=== PATIENT | male | born 1985 | race Caucasian/White ===

== ENCOUNTER 2018-06-07 01:08 | Emergency (ER) | payer MEDICAID ==
[~2018-06-07] VITALS: Ht 172.7 cm; Wt 66.3 kg
--- NOTE | 2018-06-07 01:29 | NUR ---
PT. STATES "I WAS AT [facility] AND THEY WOULDN'T DO NOTHING FOR ME". THIS RN ASKED ABOUT DIAGNOSIS OF KIDNEY STONE AND PT. STATES "I DIAGNOSED MYSELF WITH IT BECAUSE I KNOW I PISSED IT OUT THIS MORNING. I CAN'T KEEP WALKING AROUND WITH ALL THIS PAIN." PT. REPORTS WALKING HERE FROM [facility] AFTER D/C FOR "A SECOND OPINION". PT. POOR HISTORIAN AND WHEN ASKED ABOUT FLANK PAIN STATES "I DON'T KNOW IF I HAVE PAIN THERE". DENIES VOMITING. PT. IN GOWN AND AWAITING PROVIDER EVAL.
[2018-06-07] MEDS ORDERED: KETOROLAC 30 MG/1 ML ONE (02:00)
[2018-06-07] MEDS ORDERED: KETOROLAC 30 MG/1 ML IM ONE (02:00)
--- NOTE | 2018-06-07 02:09 | NUR ---
PT. MEDICATED PER APR FOR 8 ABD PAIN. URINE SAMPLE COLLECTED AND SENT TO LAB. CONTINUOUS PUSLE OX AND B/P MONITORS PLACED. CALL LIGHT IN REACH. ALL SAFETY MEASURES OBSERVED.
[2018-06-07 02:31] LABS: AMPHETAMINE SCREEN, URINE Positive (Negative); BARBITURATE SCREEN, URINE Negative (Negative); BENZODIAZEPINE SCREEN, URINE Negative (Negative); CANNABINOID SCREEN, URINE Positive (Negative); COCAINE SCREEN, URINE Negative (Negative); METHADONE SCREEN, URINE Negative (Negative); OPIATE SCREEN, URINE Positive (Negative)
[2018-06-07 02:54] VITALS: BP 110/69
== END 2018-06-07 02:55 | disposition home or self-care (01) ==
LOC: ED 02:44
DX: R10.9 Unspecified abdominal pain (principal); F15.10 Other stimulant abuse, uncomplicated; F17.200 Nicotine dependence, unspecified, uncomplicated; J45.909 Unspecified asthma, uncomplicated
CPT/HCPCS: 71046; 80307; 96372; 99284; J1885

== ENCOUNTER 2018-07-08 20:18 | Emergency (ER) | payer MEDICAID ==
[~2018-07-08] VITALS: Ht 172.7 cm; Wt 65.5 kg
[2018-07-08] MEDS ORDERED: RISP0.253 PO (20:33)
[2018-07-08] MEDS ORDERED: LEVE250T28 PO (20:33)
[2018-07-08] MEDS ORDERED: DEXT10TA7 PO (20:33)
[2018-07-08] MEDS ORDERED: QUET25TA5 PO (20:33)
--- NOTE | 2018-07-08 20:33 | NUR ---
PT PRESENTED WITH C/O LEFT SIDE DENTAL PAIN AND VOMITING X 2 DAYS, PT STATED UPPER AND LOWER LEFT SIDED DENTAL PAIN, SWELLING NOTED TO LEFT FACE. RESPIRATIONS EVEN AND UNLABORED, MONITORS APPLIED, SIDERAILS UP X2, CALL LIGHT WITHIN REACH. AWAITING ERP FOR EVAL AND ORDERS
[2018-07-08] MEDS ORDERED: BUPIVACAINE 0.25% ONE (20:40)
[2018-07-08] MEDS ORDERED: LIDOCAINE-MPF 1%, 5ML ONE (20:40)
[2018-07-08] MEDS ORDERED: ONDANSETRON ODT 8 MG ONE (20:45)
--- NOTE | 2018-07-08 20:48 | NUR ---
PT MEDICATED PER MAR
[2018-07-08] MEDS ORDERED: ONDANSETRON ODT 8 MG PO ONE (21:00)
[2018-07-08] MEDS: LIDOCAINE-MPF 1%, 5ML INFIL ONE (21:00)
[2018-07-08] MEDS ORDERED: ONDANSETRON ODT 8 MG PO PRN (21:00)
[2018-07-08] MEDS ORDERED: BUPIVACAINE/PF-EPI 0.25% 1:200K SQ ONE (21:00)
[2018-07-08 21:15] VITALS: BP 120/75
== END 2018-07-08 21:36 | disposition home or self-care (01) ==
LOC: ED 21:28
DX: K02.9 Dental caries, unspecified (principal); K08.89 Other specified disorders of teeth and supporting structures; F15.10 Other stimulant abuse, uncomplicated; Z72.9 Problem related to lifestyle, unspecified; F17.210 Nicotine dependence, cigarettes, uncomplicated; J45.909 Unspecified asthma, uncomplicated; G40.909 Epilepsy, unspecified, not intractable, without status epilepticus
CPT/HCPCS: 64402; 99284; Q0162

== ENCOUNTER 2018-07-09 00:15 | Emergency (ER) | payer MEDICAID ==
[~2018-07-09] VITALS: Ht 172.7 cm; Wt 62.0 kg
[~2018-07-09 00:15] MED LIST: DEXT10TA7 PO; LEVE250T28 PO; QUET25TA5 PO; RISP0.253 PO
--- NOTE | 2018-07-09 00:22 | NUR ---
PT PLACED IN SECURED ROOM, BILAT GARAGE DOORS DOWN. ALL CLOTHING REMOVED, PT IN HOSPITAL GOWN. BELONGINGS TAGGEDM, BAGGED AND PLACED IN CLOTHING CLOSET. PT STATED HE IS ONLY SUICIDAL WHEN HE IS SOBER BECAUSE HIS LIFE SUCKS. LAB AT ROOM TO DRAW BLOOD. PT AWARE A URINE SAMPLE IS NEEDED. SITTER AT DOOR.
[2018-07-09 01:04] LABS: BASOPHILS # (AUTO) 0.05 x10^3/uL (0-0.1); BASOPHILS % (AUTO) 1 % (0-1); EOSINOPHILS # (AUTO) 0.23 x10^3/uL (0-0.4); EOSINOPHILS % (AUTO) 3 % (1-7); LYMPHOCYTES # (AUTO) 2.04 x10^3/uL (1-3.4); LYMPHOCYTES % (AUTO) 29 % (22-44); MD NO; MEAN CORPUSCULAR HEMOGLOBIN 29.9 pg (27.5-34.5); MEAN CORPUSCULAR HGB CONC 32.9 g/dL (33.2-36.2); MEAN CORPUSCULAR VOLUME 90.8 fL (81-97); MEAN PLATELET VOLUME 8.4 fL (7.4-10.4); MONOCYTES # (AUTO) 0.91 x10^3/uL (0.2-0.8); MONOCYTES % (AUTO) 13 % (2-9); NEUTROPHILS # (AUTO) 3.75 x10^3/uL (1.8-6.8); NEUTROPHILS % (AUTO) 54 % (42-75); PLATELET COUNT 255 x10^3/uL (130-400); RED BLOOD COUNT 4.61 x10^6/uL (4.38-5.82); RED CELL DISTRIBUTION WIDTH 14.4 % (9.4-14.8)
--- NOTE | 2018-07-09 01:08 | NUR ---
assumed care of pt at this time, pt in nad labs drawn by lab
[2018-07-09 01:46] LABS: ANION GAP 5 mmol/L (5-15); CALCIUM 8.3 mg/dL (8.5-10.1); CHLORIDE 107 mmol/L (98-107); CREATININE 0.76 mg/dL (0.7-1.3)
--- NOTE | 2018-07-09 01:51 | NUR ---
[facility] called at this time to request HBI eval
[2018-07-09 02:21] LABS: AMPHETAMINE SCREEN, URINE Positive (Negative); BARBITURATE SCREEN, URINE Negative (Negative); BENZODIAZEPINE SCREEN, URINE Negative (Negative); CANNABINOID SCREEN, URINE Positive (Negative); COCAINE SCREEN, URINE Negative (Negative); METHADONE SCREEN, URINE Negative (Negative); OPIATE SCREEN, URINE Negative (Negative)
--- NOTE | 2018-07-09 03:24 | NUR ---
Call back from [facility] and they state patient has medicaid HPN expanision. Will call them
--- NOTE | 2018-07-09 03:57 | NUR ---
Spoke with [employer] from [employer] and she states that they will send the request to the mobile assesser at this time.
--- NOTE | 2018-07-09 04:00 | NUR ---
pt sleeping in nad sitter at door garage doors down room secure
[2018-07-09] MEDS ORDERED: metroNIDAZOLE 500 MG TABLET ONE (05:41)
[2018-07-09] MEDS ORDERED: AMOXICILLIN 500 MG CAPSULE ONE (05:42)
[2018-07-09] MEDS ORDERED: AMOXICILLIN 500 MG CAPSULE PO SCH (06:00)
[2018-07-09] MEDS ORDERED: metroNIDAZOLE 500 MG TABLET PO SCH (06:00)
--- NOTE | 2018-07-09 06:59 | NUR ---
report to connie presley sleeping in nad
--- NOTE | 2018-07-09 07:31 | NUR ---
LATE NOTE ENTRY FOR 0645: Received bedside report from CHELO Moss. All questions answered. Assuming care of pt. Pt sleeping on stomach on gurney. NADN. Room secured with SI precautions. Sitter near doorway in direct line of sight for observation. No needs expressed at this time. Pt has unlabored respirations with even chest rise and fall.
--- NOTE | 2018-07-09 08:17 | NUR ---
Breakfast tray provided to pt. Pt awakes to voice of sitter. NADN. Pt has unlabored respirations with even chest rise and fall. No needs expressed at this time. Sitter near doorway in direct line of sight for observation.
--- NOTE | 2018-07-09 08:30 | NUR ---
monitor in room
--- NOTE | 2018-07-09 08:39 | NUR ---
SPOKE WITH SOC MD PEPE FOR REPORT OF PATIENT
--- NOTE | 2018-07-09 08:59 | NUR ---
Provided bedside report to CHELO Fung. All questions answered. NADN. No needs expressed at this time. Sitter near doorway in direct line of sight for observation.
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
--- NOTE | 2018-07-09 09:32 | NUR ---
PT AGGRAVATED WHEN BACK IN ROOM AFTER TELEPSYCH EVAL. HE IS HUNGRY DESPITE BREAKFAST. SNACKS LEFT IN ROOM AT THIS TIME PT IS SLEEPING.
--- NOTE | 2018-07-09 09:33 | NUR ---
Garage doors down, room secure. Sitter at door.
--- NOTE | 2018-07-09 09:51 | NUR ---
VITAL SIGNS UPDATED. PT AWAKE AND EATING SNACKS. WHEN ASKED IF HE IS HAVING PAIN HE STATES HE HAS A CUELLAR. MADE AWARE OF POC
--- NOTE | 2018-07-09 11:38 | NUR ---
PACKET FAXED TO [facility], [facility] AND [facility]
--- NOTE | 2018-07-09 12:28 | NUR ---
AWOKE PT AND PROVIDED HIM LUNCH
--- NOTE | 2018-07-09 12:37 | NUR ---
PT AMBULATED TO BATHROOM, STEADY GAIT. SITTER PROVIDING OBSERATION
--- NOTE | 2018-07-09 13:11 | NUR ---
REPORT TO GRISELDA EPPS [facility]
[2018-07-09 13:12] VITALS: BP 120/57
--- NOTE | 2018-07-09 13:50 | NUR ---
JORDY AT BEDSIDE TO TRANSPORT PT TO [facility]. REPORT GIVEN TO [facility] STAFF. SUIT CASE AND ADDITIONAL BAG OF BELONGINGS GIVEN TO [facility]. PT AMBULATED OUT ER WITH [facility] STAFF.
== END 2018-07-09 14:01 ==
LOC: ED 00:37
DX: R45.851 Suicidal ideations (principal); A69.1 Other Vincent's infections; F17.200 Nicotine dependence, unspecified, uncomplicated; G40.909 Epilepsy, unspecified, not intractable, without status epilepticus; J45.909 Unspecified asthma, uncomplicated; F31.9 Bipolar disorder, unspecified
CPT/HCPCS: 36415; 80048; 80307; 85025; 99285

== ENCOUNTER 2018-08-23 17:16 | Emergency (ER) | payer MEDICAID ==
[~2018-08-23] VITALS: Ht 172.7 cm; Wt 62.7 kg
[2018-08-23 17:34] VITALS: BP 126/92
[2018-08-23] MEDS ORDERED: ONDANSETRON ODT 8 MG PO STA (19:17)
[2018-08-23 19:31] LABS: BASOPHILS # (AUTO) 0.01 x10^3/uL (0-0.1); BASOPHILS % (AUTO) 0 % (0-1); EOSINOPHILS # (AUTO) 0.08 x10^3/uL (0-0.4); EOSINOPHILS % (AUTO) 1 % (1-7); LYMPHOCYTES # (AUTO) 1.28 x10^3/uL (1-3.4); LYMPHOCYTES % (AUTO) 22 % (22-44); MD NO; MEAN CORPUSCULAR HEMOGLOBIN 30.2 pg (27.5-34.5); MEAN CORPUSCULAR HGB CONC 32.6 g/dL (33.2-36.2); MEAN CORPUSCULAR VOLUME 92.8 fL (81-97); MEAN PLATELET VOLUME 8.6 fL (7.4-10.4); MONOCYTES # (AUTO) 0.86 x10^3/uL (0.2-0.8); MONOCYTES % (AUTO) 15 % (2-9); NEUTROPHILS # (AUTO) 3.61 x10^3/uL (1.8-6.8); NEUTROPHILS % (AUTO) 62 % (42-75); PLATELET COUNT 230 x10^3/uL (130-400); RED BLOOD COUNT 4.77 x10^6/uL (4.38-5.82); RED CELL DISTRIBUTION WIDTH 14.2 % (9.4-14.8)
[2018-08-23 19:40] LABS: ALANINE AMINOTRANSFERASE 29 U/L (12-78); ALBUMIN 3.4 g/dL (3.4-5.0); ANION GAP 6 mmol/L (5-15); CALCIUM 8.5 mg/dL (8.5-10.1); CHLORIDE 105 mmol/L (98-107); CREATININE 0.82 mg/dL (0.7-1.3)
[2018-08-23 19:43] LABS: ALKALINE PHOSPHATASE 76 U/L (45-117); BILIRUBIN,TOTAL 0.4 mg/dL (0.2-1.0); TOTAL PROTEIN 6.7 g/dL (6.4-8.2)
--- NOTE | 2018-08-23 19:50 | NUR ---
PT BACK TO ROOM
--- NOTE | 2018-08-23 19:59 | NUR ---
THIS IS A 33 Y/O MALE ARRIVING TO ED WITH RIGHT NARE PAIN, BODY ACHES AND NOT FEELING WELL WITH DEHYDRATIONS S/P SNORTING 1 LINE OF METH AT HOME. PT REPROTS CHRONIC METH USE. PT REPROTS HE WOULD LIKE TO BE EVALUATED THROUGHLY. VSS
[2018-08-23] MEDS ORDERED: ONDANSETRON ODT 4 MG ONE (20:24)
[2018-08-23] MEDS ORDERED: LORazepam 2 MG/ML, 1ML ONE (20:40)
[2018-08-23] MEDS ORDERED: ONDANSETRON 2MG/ML, 2ML ONE (20:41)
--- NOTE | 2018-08-23 20:54 | NUR ---
pt passed po challenge, given crackers and water, dc with steady gait
== END 2018-08-23 20:57 | disposition home or self-care (01) ==
LOC: ED 19:34
DX: R11.2 Nausea with vomiting, unspecified (principal); R19.7 Diarrhea, unspecified; F17.210 Nicotine dependence, cigarettes, uncomplicated; G40.909 Epilepsy, unspecified, not intractable, without status epilepticus; J45.909 Unspecified asthma, uncomplicated
CPT/HCPCS: 36415; 80053; 83690; 85025; 99283; Q0162

== ENCOUNTER 2018-09-03 14:17 | Emergency (ER) | payer MEDICAID ==
[~2018-09-03] VITALS: Ht 172.7 cm; Wt 77.3 kg
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
--- NOTE | 2018-09-03 14:38 | NUR ---
PT TO RADIOLOGY AT THIS TIME.
--- NOTE | 2018-09-03 14:41 | NUR ---
PT BACK FROM RADIOLOGY. RESTING ON DEVORA.
[2018-09-03 15:01] VITALS: BP 126/59
--- NOTE | 2018-09-03 15:01 | NUR ---
PT ASLEEP ON [facility] AT THIS TIME. NADN. CAMARENA.
[2018-09-03] MEDS ORDERED: KETOROLAC 30 MG/1 ML ONE (15:24)
--- NOTE | 2018-09-03 15:26 | NUR ---
PT MEDICATED PER EMAR AT THIS TIME. PT AWARE OF D/C PLAN. PT RESTING ON DEVORA. CARMITA. SHAHANAS.
[2018-09-03] MEDS ORDERED: KETOROLAC 30 MG/1 ML IM PRN (15:30)
--- NOTE | 2018-09-03 15:42 | NUR ---
TASK RN: FIRST CONTACT WITH PT: Pt medically cleared for d/c and provided education and d/c paperwork. Pt refusing to leave. Pt staes, "You act like I have been here for hours, just leave me alone." Pt resting on gurney on abdomen with eyes closed. Pt called ED RN, "josefina". Security called for escort to d/c. NADN. No obvious defecits observed.
== END 2018-09-03 15:46 | disposition home or self-care (01) ==
LOC: ED 15:40
DX: S70.11XA Contusion of right thigh, initial encounter (principal); G40.909 Epilepsy, unspecified, not intractable, without status epilepticus; F17.200 Nicotine dependence, unspecified, uncomplicated; Y04.0XXA Assault by unarmed brawl or fight, initial encounter; Y93.89 Activity, other specified; Y92.410 Unspecified street and highway as the place of occurrence of the external cause; Y99.8 Other external cause status
CPT/HCPCS: 73552; 96372; 99283; J1885

== ENCOUNTER 2018-09-19 03:16 | Emergency (ER) | payer MEDICAID ==
[~2018-09-19] VITALS: Ht 172.7 cm; Wt 60.6 kg
[2018-09-19 03:19] VITALS: BP 153/101
== END 2018-09-19 04:14 | disposition home or self-care (01) ==
LOC: ED 03:42
DX: K02.9 Dental caries, unspecified (principal); Z72.9 Problem related to lifestyle, unspecified; G40.909 Epilepsy, unspecified, not intractable, without status epilepticus; J45.909 Unspecified asthma, uncomplicated; F31.9 Bipolar disorder, unspecified; F17.200 Nicotine dependence, unspecified, uncomplicated
CPT/HCPCS: 99283

== ENCOUNTER 2019-01-02 01:22 | Emergency (ER) | payer MEDICAID ==
[~2019-01-02] VITALS: Ht 172.7 cm; Wt 0.6 kg
[2019-01-02 01:27] VITALS: BP 133/96
--- NOTE | 2019-01-02 01:34 | NUR ---
REPORT TO CHELO RESTREPO TO ASSUME CARE OF PT.
--- NOTE | 2019-01-02 02:58 | NUR ---
PT AGITATED AND YELLING LOUDLY. PT ASKED TO STOP YELLING. HE STATES "Y'ALL AREN'T DOING ANYTHING FOR MY PAIN OR WHY I CAME HERE. THAT LADY JUST CAME IN HERE AND TOLD ME THAT I AM GETTING DISCHARGED AND I'M NOT LEAVING HERE UNTIL I GET SOME TREATMENT". PT ASKED TO STOP YELLING AND BE RESPECTFUL TO STAFF OR HE WOULD BE ESCORTED OFF THE PROPERTY BY SECURITY. THERESA SPENCE IN ROOM DISCUSSING POC WITH PATIENT WELL TEST RESULTS. PT MORE CALM AT THIS TIME.
[2019-01-02] MEDS ORDERED: IBUPROFEN 600 MG TABLET ONE (03:23)
[2019-01-02] MEDS ORDERED: IBUPROFEN 600 MG TABLET PO ONE (03:30)
--- NOTE | 2019-01-02 03:32 | NUR ---
Patient/Caregiver given discharge instructions and they have confirmed that they understand the instructions. Patient ambulatory with steady gait.
--- NOTE | 2019-01-02 03:35 | NUR ---
PT PROVIDED WITH TAXI VOUCHER TO [facility]
== END 2019-01-02 03:37 | disposition home or self-care (01) ==
LOC: ED 01:46
DX: M79.641 Pain in right hand (principal); R05 Cough; F15.10 Other stimulant abuse, uncomplicated; F17.210 Nicotine dependence, cigarettes, uncomplicated; Z72.9 Problem related to lifestyle, unspecified
CPT/HCPCS: 71046; 99283

== ENCOUNTER 2019-01-08 16:52 | Emergency (ER) | payer MEDICAID ==
[~2019-01-08] VITALS: Ht 172.7 cm; Wt 63.6 kg
--- NOTE | 2019-01-08 17:00 | NUR ---
PT BIB EMS FOR SEIZURES TODAY. PT NON COMPLIANT WITH KEPPRA. PT REPORTS LAST SEIZURE AT 4PM. PT DENIES HEAD TRUAMA. PT HAS NO S/SX OF TRAUMA. PT CONNECTED TO ALL MONITORS AND CALL LIGHT IN REACH. SEIZURE PRECAUTIONS IN PLACE. AWAITING FURTHER ORDERS.
--- NOTE | 2019-01-08 17:05 | NUR ---
PT BG LOW, PT GIVEN OJ PER DR. NORMAN.
--- NOTE | 2019-01-08 17:35 | NUR ---
PT. REMAINS MONITORED WITH SEIZURE PRECAUTIONS IN PLACE. PT. FINISHED HIS SNACK AND HIS REPEAT [id number]. PT. HAS NO CONCERNS AT THIS TIME.
[2019-01-08] MEDS ORDERED: SODIUM CHLORIDE FLUSH 10ML SYR IVF ONE (18:00)
[2019-01-08] MEDS ORDERED: LEVETIRACETAM 1,000 MG in SODIUM CHLORIDE 0.9% 100 ML IV ONE (18:00)
[2019-01-08 18:09] LABS: BASOPHILS # (AUTO) 0.04 x10^3/uL (0-0.1); BASOPHILS % (AUTO) 0 % (0-1); EOSINOPHILS # (AUTO) 0.12 x10^3/uL (0-0.4); EOSINOPHILS % (AUTO) 1 % (1-7); LYMPHOCYTES # (AUTO) 2.02 x10^3/uL (1-3.4); LYMPHOCYTES % (AUTO) 19 % (22-44); MD NO; MEAN CORPUSCULAR HEMOGLOBIN 29.2 pg (27.5-34.5); MEAN CORPUSCULAR HGB CONC 32.9 g/dL (33.2-36.2); MEAN CORPUSCULAR VOLUME 88.8 fL (81-97); MEAN PLATELET VOLUME 8.6 fL (7.4-10.4); MONOCYTES # (AUTO) 0.85 x10^3/uL (0.2-0.8); MONOCYTES % (AUTO) 8 % (2-9); NEUTROPHILS # (AUTO) 7.69 x10^3/uL (1.8-6.8); NEUTROPHILS % (AUTO) 72 % (42-75); PLATELET COUNT 227 x10^3/uL (130-400); RED BLOOD COUNT 4.83 x10^6/uL (4.38-5.82); RED CELL DISTRIBUTION WIDTH 14.4 % (9.4-14.8)
[2019-01-08 18:20] LABS: ALANINE AMINOTRANSFERASE 41 U/L (12-78); ALBUMIN 3.4 g/dL (3.4-5.0); ANION GAP 4 mmol/L (5-15); CALCIUM 8.7 mg/dL (8.5-10.1); CHLORIDE 109 mmol/L (98-107); CREATININE 0.74 mg/dL (0.7-1.3)
[2019-01-08 18:23] LABS: ALKALINE PHOSPHATASE 76 U/L (45-117); BILIRUBIN,TOTAL 0.4 mg/dL (0.2-1.0); TOTAL PROTEIN 6.5 g/dL (6.4-8.2)
[2019-01-08] MEDS ORDERED: ACETAMINOPHEN 500 MG TABLET PO ONE (18:30)
--- NOTE | 2019-01-08 18:33 | NUR ---
PT.'S KEPPRA IS INFUSING ON THE PUMP. PT. WAS MEDICATED FOR A CUELLAR. VSS. PT. REMAINS MONITORED WITH SEIZURE PRECAUTIONS IN PLACE.
[2019-01-08] MEDS ORDERED: ACETAMINOPHEN 500 MG TABLET ONE ×2 (18:35→18:38)
--- NOTE | 2019-01-08 19:34 | NUR ---
PT.'S KEPPRA FINISHED. PT. STATES RELIEF FROM THE TYLENOL. PT.'S IV WAS DCD, CATH TIP INTACT. PRESSURE HELD WITH HEMOSTASIS ACHIEVED. PT. WAS GIVEN DISCHARGE INSTRUCTIONS AND A SCRIPT WITH UNDERSTANDING VERBALIZED ALONG WITH WILLINGNESS TO COMPLY. PT. WAS AMBULATORY TO THE DISCHARGE DESK. VSS.
[2019-01-08 19:36] VITALS: BP 121/63
== END 2019-01-08 19:38 | disposition home or self-care (01) ==
LOC: ED 19:04
DX: G40.309 Generalized idiopathic epilepsy and epileptic syndromes, not intractable, without status epilepticus (principal); F17.200 Nicotine dependence, unspecified, uncomplicated; Z72.89 Other problems related to lifestyle
CPT/HCPCS: 36415; 80053; 82962; 83605; 85025; 93005; 96365; 99284; J1953

== ENCOUNTER 2019-03-10 17:26 | Emergency (ER) | payer MEDICAID ==
[~2019-03-10] VITALS: Ht 177.8 cm; Wt 59.1 kg
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
[2019-03-10] MEDS ORDERED: ZIPRASIDONE 20 MG INJ IM ONE ×3 (18:00→23:30)
--- NOTE | 2019-03-10 18:10 | NUR ---
ERP WAS IN TO SEE PT AND ASKED PT ABOUT ALLERGIES; PT DID NOT RESPOND. VERBAL ORDER WAS RECEIVED FOR VINOD CARRENO AND PT WAS MEDICATED PRIOR TO REVIEWING PREVIOUS ALLERGY LIST IN CHART. PT CURRENTLY ON MONITORS, RESTING IN GURNEY, BREATHING WNL, AWAKENS TO VOICE. VS: RR 16, HR 88, SPO2 96% ON RA, BP 122/71. Addendum: 03/10/19 at 1830 by JUNIOR PT PLACED ON LEGAL HOLD BY ERP. PT INFORMED OF LEGAL HOLD STATUS, HE VERBALIZES UNDERSTANDING. SECURITY ASSISTED PT WITH CHANGING INTO GOWN. ALL BELONGINGS REMOVED, BAGGED IN 5 BAGS PLUS PT'S BACKPACK, AND PLACED IN LOCKER. GARAGE DOORS DOWN IN ROOM BUT MONITORING EQUIPMENT IN PLACE.
--- NOTE | 2019-03-10 18:37 | NUR ---
PT RESTING IN GURNEY, BREATHING WNL, VSS. 15MIN CHECKS IN PLACE.
--- NOTE | 2019-03-10 19:07 | NUR ---
Received report and assume patient care. Patient's eyes are closed, respirations within normal limits and attached to continuous pulsatile oxygen sensor. Oxygen >98%. Patient on legal hold. Awaiting placement in psychiatric facility.
--- NOTE | 2019-03-10 21:22 | NUR ---
SPOKE WITH FABIAN FROM [facility] AND CONSULT REQUESTED.
--- NOTE | 2019-03-10 21:28 | NUR ---
SPOKE WITH DR KING WHOM STATES PT HAS HAD MULTIPLE PSYCHIATRIC ADMISSIONS FOR METH ABUSE IN THE PAST AND RECENTLY. DR KING STATES HE DOES NOT BELIEVE THE PT WILL BENEFIT FROM CONTINUED INPATIENT PSYCHIATRIC ADMISSIONS. HE RECOMMENDS PT BE REEVALUATED BY ERMD ONCE HE NANCY UP FROM HIS METH INTOXICATION. PER DR KING IF AT THAT TIME THE ER MD BELIEVES PT SHOULD BE KEPT ON A LEGAL HOLD DR KING STATES TO SEND THE REFERRAL TO [facility]. ER MD INFORMED. PLAN AT THIS TIME IS TO REASSESS WHEN SOBER.
[2019-03-10 21:34] LABS: BASOPHILS # (AUTO) 0.06 x10^3/uL (0-0.1); BASOPHILS % (AUTO) 1 % (0-1); EOSINOPHILS % (AUTO) 1 % (1-7); LYMPHOCYTES # (AUTO) 2.05 x10^3/uL (1-3.4); LYMPHOCYTES % (AUTO) 28 % (22-44); MD NO; MEAN CORPUSCULAR HEMOGLOBIN 29.6 pg (27.5-34.5); MEAN CORPUSCULAR HGB CONC 33.3 g/dL (33.2-36.2); MEAN CORPUSCULAR VOLUME 88.8 fL (81-97); MEAN PLATELET VOLUME 8.2 fL (7.4-10.4); MONOCYTES # (AUTO) 0.77 x10^3/uL (0.2-0.8); MONOCYTES % (AUTO) 11 % (2-9); NEUTROPHILS # (AUTO) 4.33 x10^3/uL (1.8-6.8); NEUTROPHILS % (AUTO) 59 % (42-75); PLATELET COUNT 216 x10^3/uL (130-400); RED BLOOD COUNT 4.79 x10^6/uL (4.38-5.82); RED CELL DISTRIBUTION WIDTH 14.3 % (9.4-14.8)
--- NOTE | 2019-03-10 21:34 | NUR ---
Patient remains lethargic, but occasionally yells out. New orders for laboratory draws. Patient is not arousable enough to provide urine sample. Will reassess when patient arouses. Patient during this visit has been uncooperative and a threat to staff.
[2019-03-10 21:47] LABS: ALANINE AMINOTRANSFERASE 35 U/L (12-78); ALBUMIN 3.5 g/dL (3.4-5.0); ANION GAP 8 mmol/L (5-15); CALCIUM 8.2 mg/dL (8.5-10.1); CHLORIDE 109 mmol/L (98-107); CREATININE 0.78 mg/dL (0.7-1.3)
[2019-03-10 21:48] LABS: SALICYLATE LEVEL < 1.7 mg/dL (2.8-20.0)
[2019-03-10 21:49] LABS: ALKALINE PHOSPHATASE 80 U/L (45-117); BILIRUBIN,TOTAL 0.6 mg/dL (0.2-1.0); TOTAL PROTEIN 6.5 g/dL (6.4-8.2)
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
--- NOTE | 2019-03-11 00:19 | NUR ---
Gave report, reviewed recent events with receiving RN. Covered plan of care including need for EKG and urinalysis (depending on patient's behavior)
--- NOTE | 2019-03-11 00:22 | NUR ---
RPT RECEIVED FROM CHELO MEZA. ASSUMED CARE OF PT.
[2019-03-11 00:31] VITALS: BP 129/82
--- NOTE | 2019-03-11 01:27 | NUR ---
Break RN: As pt was getting dressed for d/c, pt started hitting the metal doors in room and becoming verbally agressive. Security called for stand-by assist. Pt dressed self, gathered belgonings and ambulated out of ER with security x3. Pt declined offer of his d/c papers.
== END 2019-03-11 01:31 | disposition home or self-care (01) ==
LOC: ED 17:34
DX: F15.129 Other stimulant abuse with intoxication, unspecified (principal); J45.909 Unspecified asthma, uncomplicated; F17.200 Nicotine dependence, unspecified, uncomplicated
CPT/HCPCS: 36415; 80053; 80307; 85025; 93005; 96372; 99284; J3486

== ENCOUNTER 2019-03-16 15:36 | Emergency (ER) | payer MEDICAID ==
[~2019-03-16] VITALS: Ht 172.7 cm; Wt 59.0 kg
[2019-03-16 15:50] VITALS: BP 126/86
--- NOTE | 2019-03-16 16:04 | NUR ---
PT CAME IN CO OF LEFT GROIN PAIN. SAYS HE WALKS EVERDAY. SAYS IT HURTS TO PUT PRESSURE ON HIS LEFT LEG.
== END 2019-03-16 16:50 | disposition home or self-care (01) ==
LOC: ED 16:20
DX: S76.212A Strain of adductor muscle, fascia and tendon of left thigh, initial encounter (principal); J45.909 Unspecified asthma, uncomplicated; G89.29 Other chronic pain; R11.2 Nausea with vomiting, unspecified; X58.XXXA Exposure to other specified factors, initial encounter; Y93.89 Activity, other specified; Y92.89 Other specified places as the place of occurrence of the external cause; Y99.8 Other external cause status
CPT/HCPCS: 99283

== ENCOUNTER 2019-04-09 21:37 | Emergency (ER) | payer MEDICAID ==
[~2019-04-09] VITALS: Ht 172.7 cm; Wt 62.5 kg
[2019-04-09 21:49] VITALS: BP 144/82
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
--- NOTE | 2019-04-09 22:49 | NUR ---
PT'S BELONGINGS COLLECTED, SAFETY PRECAUTIONS IN PLACE. SITTER AT DOORWAY FOR MONITORING.
[2019-04-09] MEDS ORDERED: HALOPERIDOL 5 MG/ML IM PRN (23:00)
[2019-04-09 23:12] LABS: BASOPHILS # (AUTO) 0.05 x10^3/uL (0-0.1); BASOPHILS % (AUTO) 0 % (0-1); EOSINOPHILS # (AUTO) 0.18 x10^3/uL (0-0.4); EOSINOPHILS % (AUTO) 2 % (1-7); LYMPHOCYTES # (AUTO) 2.72 x10^3/uL (1-3.4); LYMPHOCYTES % (AUTO) 26 % (22-44); MD NO; MEAN CORPUSCULAR HEMOGLOBIN 29.5 pg (27.5-34.5); MEAN CORPUSCULAR VOLUME 89.3 fL (81-97); MEAN PLATELET VOLUME 8.6 fL (7.4-10.4); MONOCYTES # (AUTO) 0.91 x10^3/uL (0.2-0.8); MONOCYTES % (AUTO) 9 % (2-9); NEUTROPHILS # (AUTO) 6.46 x10^3/uL (1.8-6.8); NEUTROPHILS % (AUTO) 63 % (42-75); PLATELET COUNT 248 x10^3/uL (130-400); RED BLOOD COUNT 4.86 x10^6/uL (4.38-5.82); RED CELL DISTRIBUTION WIDTH 13.9 % (9.4-14.8)
[2019-04-09 23:25] LABS: ALANINE AMINOTRANSFERASE 39 U/L (12-78); ALBUMIN 3.9 g/dL (3.4-5.0); ANION GAP 5 mmol/L (5-15); CALCIUM 8.7 mg/dL (8.5-10.1); CHLORIDE 112 mmol/L (98-107); CREATININE 0.82 mg/dL (0.7-1.3); SALICYLATE LEVEL 1.8 mg/dL (2.8-20.0)
[2019-04-09 23:27] LABS: ALKALINE PHOSPHATASE 81 U/L (45-117); BILIRUBIN,TOTAL 0.3 mg/dL (0.2-1.0); TOTAL PROTEIN 6.9 g/dL (6.4-8.2)
--- NOTE | 2019-04-10 00:30 | NUR ---
TASK RN: PT ASLEEP AT THIS TIME; TLN. SITTER OUTSIDE OF ROOM FOR DIRECT OBSERVATION OF PT.
--- NOTE | 2019-04-10 02:06 | NUR ---
Security called, pt became agressive yelling at staff and got a hold of garage doors in room.
== END 2019-04-10 02:36 | disposition home or self-care (01) ==
LOC: ED 04-10 00:17
DX: F15.159 Other stimulant abuse with stimulant-induced psychotic disorder, unspecified (principal); F11.159 Opioid abuse with opioid-induced psychotic disorder, unspecified; F17.210 Nicotine dependence, cigarettes, uncomplicated; F31.9 Bipolar disorder, unspecified; J45.909 Unspecified asthma, uncomplicated
CPT/HCPCS: 36415; 80053; 80307; 85025; 99283; 99406

== ENCOUNTER 2019-11-25 15:08 | Emergency (ER) | payer MEDICAID ==
[~2019-11-25] VITALS: Ht 172.7 cm; Wt 61.0 kg
[2019-11-25 15:15] VITALS: BP 112/73
== END 2019-11-25 16:12 | disposition home or self-care (01) ==
LOC: ED 16:01
DX: B34.9 Viral infection, unspecified (principal); Z20.828 Contact with and (suspected) exposure to other viral communicable diseases; F17.200 Nicotine dependence, unspecified, uncomplicated; J45.909 Unspecified asthma, uncomplicated
CPT/HCPCS: 36415; 87635; 99283

== ENCOUNTER 2019-12-04 | Emergency (ER) | payer MEDICAID ==
[~2019-12-04] VITALS: Ht 172.7 cm; Wt 63.6 kg
--- NOTE | 2019-12-04 00:10 | NUR ---
PT REPORTS "MY HEAD IS MESSED UP RIGHT NOW" I THINK I JUST NEED TO RESTART SEROQUEL AND ILL BE OKAY". ERP IN ROOM TO SAILAJA PT.
[2019-12-04 01:39] VITALS: BP 135/87
== END 2019-12-04 01:41 | disposition home or self-care (01) ==
LOC: ED 01:09
DX: F33.9 Major depressive disorder, recurrent, unspecified (principal); G40.909 Epilepsy, unspecified, not intractable, without status epilepticus; G89.29 Other chronic pain; F17.200 Nicotine dependence, unspecified, uncomplicated; Z76.0 Encounter for issue of repeat prescription; Z72.9 Problem related to lifestyle, unspecified
CPT/HCPCS: 99283

== ENCOUNTER 2019-12-06 11:27 | Emergency (ER) | payer MEDICAID ==
[~2019-12-06] VITALS: Ht 172.7 cm; Wt 59.6 kg
[2019-12-06 11:29] VITALS: BP 138/94
--- NOTE | 2019-12-06 11:33 | NUR ---
PT ELOPED FROM TRIAGE
== END 2019-12-06 11:35 | disposition left against medical advice (07) ==
LOC: ED 11:29
DX: H92.02 Otalgia, left ear (principal); Z53.21 Procedure and treatment not carried out due to patient leaving prior to being seen by health care provider